=== PATIENT | female | born 1965 | race Caucasian/White ===

== ENCOUNTER 2016-08-03 07:05 | Day surgery (SDC) | payer OTHER ==
[~2016-08-03 07:05] MED LIST: FENTANYL 250 MCG/5 ML AMP IV PRN; IV START KIT ONE; LACTATED RINGERS 1,000 ML IV SCH; LACTATED RINGERS 1,000 ML ONE; MIDAZOLAM HCL 5 MG/5 ML VIAL IV PRN
[2016-08-03] MEDS ORDERED: FENTANYL 0 ML ONE (07:08)
[2016-08-03] MEDS ORDERED: MIDAZOLAM HCL 5 MG/5 ML VIAL ONE ×2 (07:08→08:18)
[2016-08-03] MEDS ORDERED: IV START KIT ONE (07:49)
[2016-08-03] MEDS ORDERED: FENTANYL 5 ML ONE (08:18)
[2016-08-03] MEDS ORDERED: LIDOCAINE Viscous 2% 15 ML UDCUP ONE (08:19)
== END 2016-08-03 08:58 | disposition home or self-care (01) ==
LOC: SDC 07:05
PROVIDERS: ATTEND Internal Medicine Gastroenterology
PROC: 0DJD8ZZ Inspection of Lower Intestinal Tract, Via Natural or Artificial Opening Endoscopic (ICD-10-PCS; principal; 2016-08-03)
DX: Z12.11 Encounter for screening for malignant neoplasm of colon (principal); F41.8 Other specified anxiety disorders; Z88.5 Allergy status to narcotic agent